=== PATIENT | male | born 1950 | race Caucasian/White ===

== ENCOUNTER 2022-03-19 10:19 | Day surgery (SDC) | payer MEDICARE ==
[~2022-03-19] VITALS: Ht 157.5 cm; Wt 40.1 kg
[2022-03-19] MEDS ORDERED: SEROQUEL50 MG PO (11:17)
[2022-03-19] MEDS ORDERED: COZAAR 50MG50 MG/TAB PO (11:17)
[2022-03-19] MEDS ORDERED: MULTI VITAMINS1 TAB PO (11:18)
[2022-03-19 12:30] VITALS: BP 140/62; PULSE 58; TEMP 97.4
[2022-03-19 13:25] VITALS: BP 132/58; PULSE 71; TEMP 98.3
--- NOTE | 2022-03-19 13:25 | NUR ---
PT TO BAY 3 PER CART FROM OR. REPORT RECEIVED FROM MOBILE UI DEVELOPER AND PATIENT EDUCATOR. VS OBTAINED. CALL LIGHT WITHIN REACH. BROTHER AT BEDSIDE. PT DENIES ANY NEEDS AT THIS TIME. WILL CONTINUE TO MONITOR.
--- NOTE | 2022-03-19 13:25 | NUR ---
PT TO BAY 3 PER CART FROM OR. REPORT RECEIVED FROM HAIR BOILER OPERATOR AND BANKING PIN ADJUSTER. VS OBTAINED. CALL LIGHT WITHIN REACH. BROTHER AT BEDSIDE. PT DENIES ANY NEEDS AT THIS TIME. WILL CONTINUE TO MONITOR.
[2022-03-19 13:40] VITALS: BP 170/58; PULSE 67
[2022-03-19] MEDS ORDERED: NORCO 325 MG-51 TAB PO (13:44)
[2022-03-19 13:55] VITALS: BP 172/56; PULSE 67
--- NOTE | 2022-03-19 13:55 | NUR ---
PT TOLERATING WATER, JUICE, PUDDING, AND MUFFIN. PT DENIES ANY OTHER NEEDS AT THIS TIME.
--- NOTE | 2022-03-19 13:55 | NUR ---
PT TOLERATING WATER, JUICE, PUDDING, AND MUFFIN. PT DENIES ANY OTHER NEEDS AT THIS TIME.
[2022-03-19 14:10] VITALS: BP 171/63; PULSE 85
[2022-03-19 14:25] VITALS: BP 169/62; PULSE 72
--- NOTE | 2022-03-19 15:05 | NUR ---
1430-PT VOIDED WITHOUT DIFFICULTY. 1440-IV DC'D AT THIS TIME. 1455-DISCHARGE EDUCATION COMPLETED WITH PT'S BROTHER. VERBALIZED UNDERSTANDING OF HOME AND FOLLOW UP CARE. ALL QUESTIONS ANSWERED. DISCHARGE PAPERWORK GIVEN TO THE PT'S BROTHER. 1505-PT OFF UNIT PER WHEELCHAIR. PT DISCHARGED TO HOME WITH HIS BROTHER PER PERSONAL VEHICLE.
== END 2022-03-19 15:05 | disposition home or self-care (01) ==
LOC: SDCO 10:19
DX: K40.20 Bilateral inguinal hernia, without obstruction or gangrene, not specified as recurrent (principal); I10 Essential (primary) hypertension; Z28.310 Unvaccinated for COVID-19; Z28.9 Immunization not carried out for unspecified reason; F79 Unspecified intellectual disabilities
CPT/HCPCS: C1781; J0360; J0690; J2704; J3010; J7120